=== PATIENT | male | born 1990 | race Two or more races ===

== ENCOUNTER 2019-04-18 11:57 | Emergency (ER) | payer MEDICAID, OTHER ==
[~2019-04-18] VITALS: Ht 167.6 cm; Wt 86.0 kg
[2019-04-18] MEDS ORDERED: TETanus/Pertussis (Acell)/Diphther VAC/PF (Tdap-Adult) 0.5ml syringe IM ONE (13:45)
[2019-04-18] MEDS ORDERED: LIDOcaine 1% w/epiNEPHrine 1:200,000 30ml vial IM ONE (13:45)
[2019-04-18 13:56] VITALS: BP 117/61
== END 2019-04-18 15:08 | disposition home or self-care (01) ==
LOC: ER 11:57
DX: S71.111A Laceration without foreign body, right thigh, initial encounter (principal); W26.0XXA Contact with knife, initial encounter; Y93.89 Activity, other specified; Y92.89 Other specified places as the place of occurrence of the external cause; Y99.8 Other external cause status
CPT/HCPCS: 12002; 90471; 99283